=== PATIENT | female | born 1980 | race American Indian/Alaskan Native ===

== ENCOUNTER 2017-06-13 21:34 | Inpatient (IN) | payer MEDICAID ==
[2017-06-13] MEDS ORDERED: LACTATED RINGERS 1,000 ML IV ONE (22:57)
[2017-06-14] MEDS ORDERED: NUBAIN IV ONE (00:36)
[2017-06-14] MEDS: LACTATED RINGERS 1,000 ML IV SCH ×3 (02:00→10:30)
[2017-06-14 04:19] LABS: Hematocrit 23.5 % (30.3-42.9); Hemoglobin 7.5 gm/dl (10.1-14.3); Mean Corpuscular HGB Conc 32 % (30-34); Mean Corpuscular Volume 70 fl (79-97); Platelet Count 317 K/mm3 (140-440); Red Blood Count 3.34 M/mm3 (3.65-5.03); Red Cell Distribution Width 19.4 % (13.2-15.2)
[2017-06-14 04:30] LABS: Mean Corpuscular Hemoglobin 23 pg (28-32)
[2017-06-14] MEDS ORDERED: BICITRA PO NR ×2 (07:56→12:00)
[2017-06-14] MEDS ORDERED: GARAMYCIN 200 MG in NACL 0.9% 100 ML IV SCH (08:00)
[2017-06-14] MEDS ORDERED: CLEOCIN 600 MG/50 mL 600 MG/50 ML BAG IV NR ×2 (08:00→12:00)
[2017-06-14] MEDS ORDERED: PITOCin/NS 20 UNIT/1000ML DRIP 20 UNITS/1,000 ML BAG IV SCH ×2 (08:00→15:00)
--- NOTE | 2017-06-14 08:23 | History and Physical Report ---
History of Present Illness Date of examination: 06/14/17 Date of admission: 06/14/17 02:08 Chief complaint: Contractions History of present illness: Pt is a 36yo BF EDC 06/22/17; EGA 38 6/7 weeks presents to [facility] L&D complaining of RUC's unresolved with IV hydration. She has a previous C Section x 2 and was scheduled for Repeat C Section @ 39 weeks; however we will proceed with her Repeat C Section with BTL today since she is in early labor. She received care at [facility] since 11 weeks and co- managed by [facility] for VSD - evaluated by [facility]. records are available and GBS is Negative. 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 History: herpes Family/Genetic History: none Social history: no significant social history, single - Obstetrical History Expected Date of Delivery: 06/22/17 Actual Gestation: 38 Week(s) 6 Day(s) : 4 Medications and Allergies Allergies Allergy/AdvReac Type Severity Reaction Status Date / Time Penicillins Allergy Swelling Verified 12/03/13 09:08 Home Medications Medication Instructions Recorded Confirmed Last Taken Type Valacyclovir HCl [Valacyclovir] 1 tab PO DAILY 10/10/13 06/13/17 1 Week Ago History ~06/06/17 Vit-Fe Fumar-FA [ 1 each PO QDAY #30 tablet 10/13/13 06/13/17 06/13/17 Rx Vitamin] Active Meds: Active Medications Citric Acid/Sodium Citrate (Bicitra) 30 ml PO ONCE ONE Stop: 06/14/17 07:57 Famotidine (Pepcid) 20 mg IV ONCE ONE Stop: 06/14/17 07:57 Lactated Ringer's (Lactated Ringers) 1,000 mls @ 125 mls/hr IV DIRECT FATOU Last Admin: 06/14/17 02:00 Dose: 125 mls/hr Clindamycin HCl (Cleocin 600 Mg/50 Ml) 600 mg in 50 mls @ 100 mls/hr IV PREOP NR; Protocol Gentamicin Sulfate 200 mg/ (Sodium Chloride) 105 mls @ 200 mls/hr IV PREOP FATOU ; Protocol Oxytocin/Sodium Chloride (Pitocin/Ns 20 Unit/1000ml Drip) 20 units in 1,000 mls @ 0 mls/hr IV TITR FATOU Metoclopramide HCl (Reglan) 10 mg IV ONCE ONE Stop: 06/14/17 07:57 Review of Systems All systems: negative - Vital Signs Vital signs: Vital Signs Temp Resp 98.7 F 22 06/13/17 22:04 06/13/17 22:04 Temp Pulse Resp BP Pulse Ox 97 F L 67 24 109/61 80 L 06/14/17 07:19 06/14/17 08:12 06/14/17 07:19 06/14/17 07:23 06/14/17 08:12 - Physical Exam Breasts: Positive: deferred Cardiovascular: Regular rate Lungs: Positive: Clear to auscultation Abdomen: Positive: normal appearance Genitourinary (Female): Positive: normal external genitalia Vagina: Positive: normal moisture Uterus: Positive: enlarged Extremities: Positive: normal - Obstetrical FHR: category 1 Uterine Contraction Monitor Mode: External Uterine Contraction Pattern: Regular Uterine Tone Measurement Phase: Contraction Uterine Contraction Intensity: Mild Results Result Diagrams: 06/14/17 00:00 Abnormal lab results 06/14/17 Range/Units 00:00 RBC 3.34 L (3.65-5.03) M/mm3 Hgb 7.5 L (10.1-14.3) gm/dl Hct 23.5 L (30.3-42.9) % MCV 70 L (79-97) fl MCH 23 L (28-32) pg RDW 19.4 H (13.2-15.2) % All other labs normal. Assessment and Plan - Patient Problems (1) 38 weeks gestation of Onset Date: 06/14/17 Current Visit: Yes Status: Acute Plan to address problem: A: IUP @ 38 6/7 weeks in labor Previous C Section x 2 Desires permanent sterilization Chronic blood loss anemia P: Admit to L&D for repeat C Section with Bilateral Tubal Ligation (2) Previous section Onset Date: 06/14/17 Current Visit: Yes Status: Acute (3) Anemia affecting fourth Onset Date: 06/14/17 Current Visit: Yes Status: Acute (4) Sterilization consult Onset Date: 06/14/17 Current Visit: Yes Status: Acute
[2017-06-14] MEDS ORDERED: REGLAN IV ONE (09:00)
[2017-06-14] MEDS ORDERED: PEPCID IV ONE (09:00)
--- NOTE | 2017-06-14 10:56 | Anesthesia Consultation ---
Anesthesia Consult and Med Hx Date of service: 06/14/17 - Airway Anesthetic Teeth Evaluation: Dentures (no upper teeth) ROM Head & Neck: Adequate Mental/Hyoid Distance: Adequate Mallampati Class: Class III Intubation Access Assessment: Possibly Difficult - Pre-Operative Health Status ASA Pre-Surgery Classification: ASA3 Proposed Anesthetic Plan: Epidural, Spinal - Pulmonary Hx Smoking: Yes (1/2 ppd) Hx Asthma: Yes (last inhaler used 2yrs ago) COPD: No Hx Pneumonia: No - Cardiovascular System Hx Hypertension: No - Central Nervous System Hx Seizures: No Hx Psychiatric Problems: No - Endocrine Hx End Stage Renal Disease: No Hx Hypothyroidism: No - Hematic Hx Anemia: Yes - Other Systems Hx Alcohol Use: No Hx Obesity: Yes (Morbid obesity BMI 47.0)
--- NOTE | 2017-06-14 10:56 | Anesthesia Day of Surgery ---
Anesthesia Day of Surgery - Day of Surgery Patient Examined: Yes Patient H&P Reviewed: Yes Patient is NPO: Yes
[2017-06-14] MEDS ORDERED: NARCAN 0.4 MG/1 ML IV PRN ×2 (11:00→14:23)
[2017-06-14] MEDS ORDERED: PHENERGAN PR PRN (11:00)
[2017-06-14] MEDS ORDERED: BENADRYL IV PRN (11:00)
[2017-06-14] MEDS ORDERED: ZOFRAN IV PRN (11:00)
[2017-06-14] MEDS ORDERED: SODIUM CHLORIDE FLUSH SYRINGE 10 ML IV PRN (11:00)
[2017-06-14] MEDS ORDERED: PHENERGAN PO PRN (11:00)
[2017-06-14] MEDS ORDERED: NACL 0.9% IR ONE (12:43)
[2017-06-14] MEDS ORDERED: WATER FOR IRRIG STERILE IR ONE (12:43)
[2017-06-14] MEDS ORDERED: MORPHINE ONE (13:15)
[2017-06-14] MEDS ORDERED: XYLOCAINE MPF 2% ONE ×2 (13:15→13:16)
[2017-06-14] MEDS ORDERED: NEO SYNEPHRINE/NS Syringe(OR USE) IV ONE (13:16)
[2017-06-14] MEDS ORDERED: ZOFRAN ONE (13:20)
[2017-06-14] MEDS ORDERED: TYLENOL PO PRN (14:23)
[2017-06-14] MEDS ORDERED: TUCKS PAD TP PRN (14:23)
[2017-06-14] MEDS ORDERED: MILK OF MAGNESIA PO PRN (14:23)
[2017-06-14] MEDS ORDERED: MYLICON PO PRN (14:23)
[2017-06-14] MEDS ORDERED: LANSINOH TP PRN (14:23)
[2017-06-14] MEDS: DILAUDID IV PRN ×2 (14:36→14:48)
[2017-06-14] MEDS: TORADOL IV PRN ×2 (14:55→20:06)
[2017-06-14] MEDS ORDERED: SODIUM CHLORIDE FLUSH SYRINGE 10 ML IV SCH (15:00)
--- NOTE | 2017-06-14 19:01 | Operative Report ---
Operative Report Operative Report: Date of procedure: 06/14/2017 Pre-operative diagnosis: 1. Intrauterine at 38-6/7 weeks in labor 2. Previous 2 3. Desires permanent sterilization 4. Chronic anemia Post-operative diagnosis: Same with extensive lower uterine segment adhesions Procedure name(s): 1. Repeat low transverse section 2. Bilateral tubal ligation Surgeon: Roger Elmore MD Journalism Instructor: None Anesthesia: Spinal anesthesia by CINDY Rodriguez EBL: 900 mls Findings: A 2763 g male infant Apgars 8 at 1 minute 9 at 5 minutes. Clear amniotic fluid. Extensive lower uterine segment adhesions. Normal tubes and ovaries bilaterally. Procedure: After the patient was prepped and draped in usual sterile fashion, and after satisfactory level of epidural anesthesia was obtained, the skin knife was used to make a transverse skin incision through the previous skin scars. The incision was excised down to layer of the fascia, which was nicked in the midline and extended laterally using the Bovie cautery. The rectus muscles were dissected off the rectus fascia both superiorly and inferiorly. The rectus bellies in the midline, and the peritoneum was entered under direct visualization. The peritoneal incision was extended superiorly and inferiorly. Extensive lower uterine segment adhesions were taken down using both sharp and blunt dissection. A bladder flap was created and the bladder blade was then placed. The uterus was scored in a curvilinear linear fashion, entered in the midline revealing clear amniotic fluid. The 's head was delivered onto the surgical field with the aid of a vacuum, and the oropharynx and nasopharynx were bulb suctioned. The rest of the infant's body was delivered, cord was doubly clamped and cut and the was handed to the waiting respiratory team. Cord blood was then obtained. The placenta was manually removed from the uterus, and the uterus removed from its normal anatomical position. After gentle uterine lavage, the incision was inspected and found to be without extensions. It was then closed in 2 layers using 0 Vicryl suture in a running interlocking fashion, the second layer imbricating the first. Attention was then turned to the tubal ligation. First the right fallopian tube was grasped using the [place], and the Filshie clip was applied to the proximal portion of the tube. Next the left fallopian tube was grasped using the [place], and the Filshie clip was applied to the proximal portion of the tube. After good hemostasis was achieved, copious amounts or irrigation was performed, and the gutters were suctioned free of blood and blood clots. The Tisseel sealant was sprayed across the uterine incision. The uterus was then returned to its normal anatomical position, and after excellent hemostasis assured, the peritoneum was re-approximated using 3-0 Vicryl suture in a running interlocking fashion, and then the rectus muscles were re-approximated using 3-0 Vicryl suture in a [id number] configuration. The fascia was then re-approximated using 0 Vicryl suture in running interlocking fashion. The subcutaneous layer was made hemostatic using Bovie cautery, the Tisseel sealant was sprayed across the fascial incision and the skin edges re- approximated using 4-0 Vicryl suture in a sub-cuticular fashion. Patient tolerated the procedure well was transported to recovery in stable condition.
[2017-06-14] MEDS: D5LR 1,000 ML IV SCH (20:03)
[2017-06-14] MEDS: CLEOCIN 600 MG/50 mL 600 MG/50 ML BAG IV SCH (23:24)
[2017-06-15] MEDS: PERCOCET 5/325 PO PRN ×3 (02:46→14:20)
[2017-06-15 04:38] LABS: Hematocrit 20.6 % (30.3-42.9); Hemoglobin 6.2 gm/dl (10.1-14.3)
[2017-06-15] MEDS: D5LR 1,000 ML IV SCH (04:49)
[2017-06-15] MEDS ORDERED: BOOSTRIX IM ONE (06:00)
[2017-06-15] MEDS: MOTRIN PO PRN ×2 (06:13→15:30)
[2017-06-15] MEDS: PRENATAL VITAMIN PO SCH (08:41)
[2017-06-15] MEDS: FEOSOL PO SCH (09:59)
--- NOTE | 2017-06-15 10:54 | Progress Note ---
Assessment and Plan - Patient Problems (1) 38 weeks gestation of Onset Date: 06/14/17 Current Visit: Yes Status: Resolved (2) Previous section Onset Date: 06/14/17 Current Visit: Yes Status: Resolved (3) Anemia affecting fourth Onset Date: 06/14/17 Current Visit: Yes Status: Chronic (4) Sterilization consult Onset Date: 06/14/17 Current Visit: Yes Status: Resolved (5) Status post Onset Date: 06/15/17 Current Visit: Yes Status: Resolved Plan to address problem: A: S/P Repeat C Section with BTL - POD #1 Doing well Asymptomatic anemia - stable P: Continue RPOC Advance diet as tolerated Repeat H/H in AM Subjective - Subjective Date of service: 06/15/17 Principal diagnosis: s/p Repeat C Section with BTL - POD #1 Interval history: Pt is feeling well without complaints. Tolerating a liquid diet without nausea or vomiting. Bleeding improved. Patient reports: appetite normal, voiding normally, pain well controlled, flatus , ambulating normally : doing well, bottle feeding Objective - Vital Signs Latest vital signs: Vital Signs Temp Pulse Resp BP BP Pulse Ox 06/15/17 08:44 98.0 F 74 20 95/57 98 06/15/17 06:13 20 06/15/17 03:30 98.2 F 76 20 110/53 06/15/17 02:46 20 06/15/17 00:00 98.4 F 80 20 118/54 06/14/17 20:06 18 06/14/17 20:05 98.6 F 65 20 102/57 06/14/17 17:52 97.8 F 61 18 92/46 97 06/14/17 15:25 18 06/14/17 15:18 18 06/14/17 15:06 18 06/14/17 15:05 56 L 16 111/61 98 06/14/17 14:55 18 06/14/17 14:48 10 L 06/14/17 14:46 56 L 19 110/66 97 06/14/17 14:36 19 06/14/17 14:31 58 L 19 105/58 99 06/14/17 14:10 54 L 17 99/57 99 06/14/17 14:05 57 L 17 98/54 99 06/14/17 14:00 58 L 17 98/55 98 06/14/17 13:56 97.4 F L 60 16 93/50 98 06/14/17 12:08 68 100 06/14/17 12:03 72 100 06/14/17 11:58 70 100 06/14/17 11:55 63 80 L 06/14/17 11:53 68 100 06/14/17 11:48 78 98 06/14/17 11:43 63 98 06/14/17 11:38 68 100 06/14/17 11:33 73 58 L 06/14/17 11:28 77 100 06/14/17 11:23 76 93 06/14/17 11:18 90 91 06/14/17 11:14 70 100 06/14/17 11:09 71 100 06/14/17 11:04 67 100 06/14/17 10:59 66 100 06/14/17 10:56 86 Intake and Output 06/14/17 06/15/17 06/15/17 22:59 06:59 14:59 Intake Total 440 1480 90 Output Total 600 1000 1000 Balance -160 480 -910 Intake: IV 200 1000 D5lr 1,000 ml @ 125 mls/ 1000 hr IV DIRECT FATOU Rx#: [id number] Oral 240 480 90 Output: Urine 600 1000 1000 Indwelling Catheter 450 600 Void 400 1000 Other: Total, Intake Amount 240 240 90 Total, Output Amount [id number] # Voids Void 1 1 - Exam Breasts: Present: deferred Cardiovascular: Present: Regular rate Lungs: Present: Clear to auscultation Abdomen: Present: normal appearance, soft Uterus: Present: normal, firm, fundal height below umbilicus Extremities: Present: normal Incision: Present: normal, dry, intact, dressed - Labs Labs: Abnormal lab results 06/15/17 Range/Units 04:12 Hgb 6.2 L (10.1-14.3) gm/dl Hct 20.6 L (30.3-42.9) % Laboratory Tests 06/14/17 06/14/17 06/15/17 00:00 00:00 04:12 WBC 9.6 RBC 3.34 L Hgb 7.5 L 6.2 L Hct 23.5 L 20.6 L MCV 70 L MCH 23 L MCHC 32 RDW 19.4 H Plt Count 317 Blood Type A NEGATIVE Antibody Screen Negative Screen 06/15/17 04:12 WBC RBC Hgb Hct MCV MCH MCHC RDW Plt Count Blood Type A NEGATIVE Antibody Screen Negative Screen Negative
[2017-06-15] MEDS ORDERED: CLEOCIN 600 MG/50 mL 600 MG/50 ML BAG IV NR (11:00)
[2017-06-15] MEDS: CLEOCIN 600 MG/50 mL 600 MG/50 ML BAG IV SCH (12:30)
[2017-06-15] MEDS ORDERED: M-M-R II VACCINE SUB-Q ONE (14:25)
[2017-06-15 18:44] LABS: Hematocrit 19.9 % (30.3-42.9)
[2017-06-15] MEDS ORDERED: NACL 0.9% 500 ML 500 ML IV NR (19:29)
[2017-06-15] MEDS ORDERED: TYLENOL PO ONE (19:30)
[2017-06-15] MEDS ORDERED: BENADRYL IV ONE (19:30)
[2017-06-16] MEDS: NORCO 5/325 PO PRN (00:19)
[2017-06-16] MEDS: MOTRIN PO PRN ×2 (00:19→23:03)
[2017-06-16] MEDS: PERCOCET 5/325 PO PRN ×4 (01:53→23:08)
--- NOTE | 2017-06-16 09:40 | Progress Note ---
Assessment and Plan - Patient Problems (1) 38 weeks gestation of Onset Date: 06/14/17 Current Visit: Yes Status: Resolved (2) Previous section Onset Date: 06/14/17 Current Visit: Yes Status: Resolved (3) Anemia affecting fourth Onset Date: 06/14/17 Current Visit: Yes Status: Chronic (4) Sterilization consult Onset Date: 06/14/17 Current Visit: Yes Status: Resolved (5) Status post Onset Date: 06/15/17 Current Visit: Yes Status: Resolved Plan to address problem: A: S/P Repeat C Section with BTL - POD #2 Doing well Asymptomatic anemia - stable P: May go home tomorrow. Subjective - Subjective Date of service: 06/16/17 Principal diagnosis: s/p Repeat C Section with BTL - POD #2 Interval history: Pt is feeling well without complaints. Tolerating a reg diet without nausea or vomiting, ambulating and voiding without difficulty. Patient reports: appetite normal, voiding normally, pain well controlled, flatus , ambulating normally, no dizzy ambulation, no nauseated [place]: doing well, bottle feeding Objective - Vital Signs Latest vital signs: Vital Signs Temp Pulse Resp BP BP Pulse Ox 06/16/17 05:20 98.4 F 72 18 106/68 06/16/17 04:56 98.5 F 70 18 97/49 99 06/16/17 04:26 98.6 F 78 18 115/70 06/16/17 03:56 97.8 F 85 18 105/62 06/16/17 03:26 98.5 F 74 18 98/51 98 06/16/17 03:11 98.5 F 74 18 102/54 98 06/16/17 01:36 98.9 F 80 18 115/60 06/16/17 01:06 99 F 18 108/55 98 06/16/17 00:36 98.7 F 89 18 110/59 97 06/16/17 00:06 98.6 F 86 18 96/60 98 06/16/17 00:00 98.7 F 77 18 121/78 06/15/17 23:51 98.9 F 81 16 99/56 06/15/17 17:55 98.3 F 85 30 H 94/40 99 Intake and Output 06/15/17 06/16/17 06/16/17 22:59 06:59 14:59 Intake Total 1200 500 Output Total 250 Balance 950 500 Intake: Oral 480 Intake, Free Water 720 Blood Product 500 Cpda-1 Leuko Reduced 250 Unit [id number] Leukoreduced Red Blood 250 Cells Unit [id number] Output: Urine 250 Void 250 Other: Total, Intake Amount 480 Total, Output Amount 250 - Exam Breasts: Present: deferred Cardiovascular: Present: Regular rate Lungs: Present: Clear to auscultation Abdomen: Present: normal appearance, soft Uterus: Present: normal, firm, fundal height below umbilicus Extremities: Present: normal Incision: Present: normal, dry, intact - Labs Labs: Abnormal lab results 06/14/17 06/15/17 Range/Units 00:00 18:21 Hgb 6.0 L (10.1-14.3) gm/dl Hct 19.9 L* (30.3-42.9) % Crossmatch See Detail Laboratory Tests 06/14/17 06/14/17 06/15/17 00:00 00:00 04:12 WBC 9.6 RBC 3.34 L Hgb 7.5 L 6.2 L Hct 23.5 L 20.6 L MCV 70 L MCH 23 L MCHC 32 RDW 19.4 H Plt Count 317 Blood Type A NEGATIVE Antibody Screen Negative Screen Crossmatch See Detail 06/15/17 06/15/17 06/16/17 04:12 18:21 10:20 WBC RBC Hgb 6.0 L 7.9 L Hct 19.9 L* 24.9 L MCV MCH MCHC RDW Plt Count Blood Type A NEGATIVE Antibody Screen Negative Screen Negative Crossmatch
[2017-06-16] MEDS: FEOSOL PO SCH (10:10)
[2017-06-16] MEDS: PRENATAL VITAMIN PO SCH (10:10)
[2017-06-16 10:40] LABS: Hematocrit 24.9 % (30.3-42.9); Hemoglobin 7.9 gm/dl (10.1-14.3)
--- NOTE | 2017-06-16 11:22 | Discharge Summary ---
Providers - Providers Date of Admission: 06/14/17 14:23 Date of discharge: 06/17/17 Attending physician: SHEY MANE Primary care physician: SHEY MANE Hospitalization Reason for admission: active labor, section, IUP at term Delivery: Procedure: section, bilateral tubal ligation, repeat low transverse Episiotomy: none Laceration: none Incision: normal, dry, intact Other procedures: tubal ligation complications: transfusion Discharge diagnosis: IUP at term delivered baby: male Hospital course: Pt is a 36yo BF EDC 06/22/17; EGA 38 6/7 weeks who presented to [facility] L&D complaining of RUC's unresolved with IV hydration. She had a previous C Section x 2 and was scheduled for Repeat C Section @ 39 weeks; however we proceeded with her Repeat C Section with BTL today since she is in early labor. She tolerated the procedure well, and post operative course was unremarkable except that she was transfused 2 units of blood due to symptomatic anemia of 6.0 /19.9 which improved to 7.9/24.9 By POD #2 she was tolerating a reg diet without nausea or vomiting, ambulating and voiding without difficulty, and therefore will be discharged to home on POD #3 if she remains in stable condition. Condition at discharge: Good Disposition: DC-01 TO HOME OR SELFCARE - Discharge Diagnoses (1) 38 weeks gestation of Status: Resolved (2) Previous section Status: Resolved (3) Anemia affecting fourth Status: Chronic (4) Sterilization consult Status: Resolved (5) Status post Status: Resolved Plan - Discharge Medications Prescriptions: Ferrous Sulfate [Feosol 325 MG tab] 325 mg PO QDAY #60 tablet HYDROcodone/APAP 5-325 [[place] 5-325 mg TAB] 1 each PO Q6HR PRN #30 tablet PRN Reason: Pain, Moderate (4-6) Ibuprofen [Motrin 800 MG tab] 800 mg PO Q6H PRN #30 tablet PRN Reason: Pain, Mild (1-3) Vit-Fe Fumar-FA [ Vitamin] 1 each PO QDAY #30 tablet - Provider Discharge Summary Activity: routine, no sex for 6 weeks, no heavy lifting 4 weeks, no strenuous exercise Diet: routine Instructions: routine Additional instructions: [] Smoking cessation referral if applicable(refer to patient education folder for contact #) [] Refer to [facility] Booklet Call your doctor immediately for: * Fever > 100.5 * Heavy vaginal bleeding ( >1 pad per hour) * Severe persistent headache * Shortness of breath * Reddened, hot, painful area to leg or breast * Drainage or odor from incision. * Keep incision clean and dry at all times and follow doctor's instructions regarding bathing/showering - Follow up plan Follow up: SHEY MANE MD [Primary Care Provider] - 14 Days YAMILKA MENDEZ CNM [Advanced Practice Nurse] - 14 Days
[2017-06-17] MEDS: FEOSOL PO SCH (10:09)
[2017-06-17] MEDS: MOTRIN PO PRN (10:10)
[2017-06-17] MEDS: PRENATAL VITAMIN PO SCH (10:11)
[2017-06-17 11:03] VITALS: BP 103/62
[2017-06-17] MEDS: NORCO 5/325 PO PRN (13:15)
== END 2017-06-17 13:40 | disposition home or self-care (01) | DRG 765 ==
LOC: TRG 21:34 → UNDOADMOB 06-14 02:08 → LD 06-14 02:08 → OBSVTOIN 06-14 14:23 → OB 06-14 15:21 → LD 06-14 15:21 → INTOOBSV 06-15 08:25 → OBSVTOIN 06-15 08:25
PROVIDERS: ADMIT Obstetrics & Gynecology; ATTEND Obstetrics & Gynecology
PROC: 10D00Z1 Extraction of Products of Conception, Low, Open Approach (ICD-10-PCS; principal; 2017-06-14)
PROC: 0UN90ZZ Release Uterus, Open Approach (ICD-10-PCS; 2017-06-14)
PROC: 0UL70CZ Occlusion of Bilateral Fallopian Tubes with Extraluminal Device, Open Approach (ICD-10-PCS; 2017-06-14)
PROC: 30233S1 Transfusion of Nonautologous Globulin into Peripheral Vein, Percutaneous Approach (ICD-10-PCS; 2017-06-15)
PROC: 30233N1 Transfusion of Nonautologous Red Blood Cells into Peripheral Vein, Percutaneous Approach (ICD-10-PCS; 2017-06-15)
PROC: 3E0234Z Introduction of Serum, Toxoid and Vaccine into Muscle, Percutaneous Approach (ICD-10-PCS; 2017-06-15)
DX: O34.211 Maternal care for low transverse scar from previous cesarean delivery (principal); Z68.42 Body mass index [BMI] 45.0-49.9, adult; O99.02 Anemia complicating childbirth; D50.0 Iron deficiency anemia secondary to blood loss (chronic); O99.334 Smoking (tobacco) complicating childbirth; F17.200 Nicotine dependence, unspecified, uncomplicated; O99.52 Diseases of the respiratory system complicating childbirth; J45.909 Unspecified asthma, uncomplicated; N73.6 Female pelvic peritoneal adhesions (postinfective); O99.214 Obesity complicating childbirth; E66.01 Morbid (severe) obesity due to excess calories; Z37.0 Single live birth; Z3A.38 38 weeks gestation of pregnancy; Z88.0 Allergy status to penicillin; Z30.2 Encounter for sterilization; Z23 Encounter for immunization
CPT/HCPCS: 36415; 85014; 85018; 85027; 85461; 86850; 86900; 86901; 86920; 99211; C9250; G0463; J1170; J1200; J1580; J1885; J2270; J2300; J2370; J2405; J2590; J2765; J2790; J7040; J7120; J7121; P9016